=== PATIENT | male | born 1985 | race Caucasian/White ===

== ENCOUNTER 2017-05-21 07:47 | Observation (INO) | payer BC ==
[2017-05-19 17:04] VITALS: BMI 30.7
[2017-05-21] VITALS (23 sets, daily range): BP systolic 122–154; BP diastolic 63–84; PULSE 47–81; RESP 14–18; Ht 182.9 cm; Wt 100.7 kg
[~2017-05-21] VITALS: Ht 182.9 cm; Wt 100.7 kg
[~2017-05-21 07:47] MED LIST: ALBU18HF INH; ALPR0.5T6 PO; BENZ-5 PO; GLYCOPYRROLATE 1 MG INJ ONE; IBUP-1542 PO; NEOSTIGMINE 3 MG/3 ML SYRINGE ONE; [UNRECOGNIZED DRUG - CODE] PO
--- NOTE | 2017-05-21 08:14 | HPN ---
Date/Time of Note Date/Time of Note DATE: 05/21/17 TIME: 08:13 Interval H&P Admission Note Pt. seen H&P reviewed: No system changes HARRIETT RED MD May 21, 2017 08:13
[2017-05-21] MEDS ORDERED: MIDAZOLAM 1 MG/ML 2 ML INJ ONE (08:16)
[2017-05-21] MEDS ORDERED: ROPIVACAINE 0.5 % 30 ML VIAL ONE (08:16)
[2017-05-21] MEDS ORDERED: oxyCODONE (CR) 20 MG TAB [oxyCONTIN] PO ONE (08:30)
[2017-05-21] MEDS ORDERED: PREGABALIN 75 MG CAP PO ONE (08:30)
[2017-05-21] MEDS ORDERED: ONDANSETRON (ODT) 4 MG TAB ODT PRN (08:30)
[2017-05-21] MEDS ORDERED: HYDROmorphONE 1 MG/ML SYG IV PRN (09:00)
[2017-05-21] MEDS ORDERED: POLYMYXIN/BACITRACIN 1L IRRIG ONE ×2 (10:03→11:23)
[2017-05-21] MEDS ORDERED: NEOMYC/POLYMYX/BACIT 30 GM OINT ONE (13:13)
[2017-05-21] MEDS ORDERED: morphine 10 MG INJ ONE (13:14)
[2017-05-21] MEDS ORDERED: ONDANSETRON 4 MG INJ ONE (13:15)
[2017-05-21] MEDS ORDERED: KETOROLAC 30 MG INJ ONE (13:52)
[2017-05-21] MEDS ORDERED: LIDOCAINE 2% (SDV) 5 ML INJ ONE (13:54)
[2017-05-21] MEDS ORDERED: ROCURONIUM 50 MG INJ ONE ×2 (13:54)
[2017-05-21] MEDS ORDERED: PROPOFOL 20 ML ONE (13:54)
[2017-05-21] MEDS ORDERED: CEFAZOLIN 1 GM INJ ONE (14:02)
[2017-05-21] MEDS ORDERED: FENTAnyl 50 MCG/ML VIAL IV PRN (14:30)
[2017-05-21] MEDS ORDERED: MEPERIDINE 25 MG INJ IV PRN (14:30)
[2017-05-21] MEDS ORDERED: NALOXONE (0.4 MG/ML) INJ IV PRN (14:30)
[2017-05-21] MEDS ORDERED: ONDANSETRON 4 MG INJ IV PRN (14:30)
[2017-05-21] MEDS ORDERED: HYDROmorphONE (0.2 MG/ML) 10ML SYG IV PRN ×2 (14:30)
[2017-05-21] MEDS ORDERED: DIPHENHYDRAMINE 50 MG INJ IV PRN (14:30)
--- NOTE | 2017-05-21 14:38 | SIPON ---
Date/Time of Note Date/Time of Note DATE: 05/21/17 TIME: 14:37 Operative Report Preoperative Diagnosis Left ankle trimalleolar ankle fracture Left ankle syndesmotic disruption Postoperative Diagnosis Left ankle trimalleolar ankle fracture Left ankle syndesmotic disruption Operation/Procedure Performed Left ankle arthroscopy with extensive debridement left ankle ORIF trimalleolar ankle fracture left ankle syndesmosis ORIF Surgeon: HARRIETT RED MD Anesthesia Type: general, other (popliteal and adductor block) Estimated Blood Loss: 50 - 100 ml's Transfusion Required: no Specimen: none Grafts/Implants 3 x 4.0 partially threaded screws arthrex 1/3 tubular plate with screws Complications: no HARRIETT RED MD May 21, 2017 14:38
--- NOTE | 2017-05-21 14:39 | OPR ---
Date/Time of Note Date/Time of Note DATE: 05/21/17 TIME: 14:38 Operative Report Procedure Date: May 21, 2017 Preoperative Diagnosis Left ankle trimalleolar ankle fracture Left ankle syndesmotic disruption Postoperative Diagnosis Left ankle trimalleolar ankle fracture Left ankle syndesmotic disruption Operation Performed Left ankle arthroscopy with extensive debridement left ankle ORIF trimalleolar ankle fracture left ankle syndesmosis ORIF Surgeon: HARRIETT RED MD Anesthesia Type: general, other (popliteal and adductor block) Anesthesiologist: JULIAN CARPENTER MD Tourniquet Time: 100 min a 250 mm Hg Estimated Blood Loss: 50 - 100 ml's Transfusion Required: no Specimen: none Grafts/Implants 3 x 4.0 partially threaded screws arthrex 1/3 tubular plate with screws Complications: no Pt Condition Post Procedure: stable Disposition: PACU Indications Patient is a 31-year-old gentleman who sustained a left ankle trimalleolar ankle fracture with a syndesmotic disruption while rock climbing. Given the significant amount of swelling initially patient was noted and once the swelling reduced patient was indicated for surgical fixation given the amount of displacement. Operative\Procedure Findings Risk Note: Patient was explained the risks and benefits of surgery and the patient's diomede language including not limited to infection, bleeding, injury to blood vessels, nerves, ligaments or tendons. Risks of anesthesia, deep vein thrombosis and need for reduce future surgery. Patient acknowledged these risk by signing the surgical consent form. Procedure Description The patient was met in the preoperative holding area, marked with the correct operative extremity confirmed with both patient and consent. The patient was then brought back in the operative theater, placed supine on operative table, given preoperative antibiotics and preoperative regional block anesthesia. The patient was then placed in the arthroscopic thigh don with all bony prominences well padded with a nonsterile tourniquet placed on the operative extremity. The patient was then prepped and draped in the normal sterile fashion. All parties in the room did a timeout and everyone agreed it was the correct patient, and extremity and procedure. Initial distraction was placed across the joint and the superficial peroneal nerve had been marked out prior to distraction, and using extreme caution to avoid any injury to the neurovascular structures, the anteromedial, anterolateral, and posterolateral portals were created in the standard fashion. The arthroscope was brought into the ankle and a 21-point exam was performed showing extensive hemorrhagic scar tissue and synovitis in the ankle with extensive scar tissue in both the medial, lateral, posterior and anterior gutters. The syndesmosis was extensively debrided. After thorough debridement of the anterior medial, lateral, posterior and anterior gutters. There was extensive posterior malleolar fracture with articular disruption seen and the fracture at this point was reduced with a probe and a displaced articular fracture fragments was reduced and the comminution removed under arthroscopic visualization. Under arthroscopic visualization the fracture was held in reduction and a K wire was placed across the fracture site. After this was done , the ankle was irrigated thoroughly with normal saline and the arthroscopes were removed. At this point, the thigh don was removed and the patient was well padded under both extremities and patient was then reprepped and draped, and all gloves and instruments were changed. Attention was then turned initially to the distal fibular fracture. An incision was made over the the fibula. The incision was taken down to the fibula with care taken to avoid injury to the neurovascular structures. The fracture was identified and reduced and fixated with a distal fibular plate and fibula was reduced and under fluoroscopic guidance shown that there was fibular length and alignment and rotation had been re-achieved. Once this was shown, the wound was irrigated thoroughly. A manual external rotation stress xray was performed showing syndesmosis widening. A syndesmotic tightrope was then placed across the joint to reduce the syndesmosis. Attention was then turned to the medial malleolus and an incision was made over the medial malleolus and the medial malleolar fracture was identified and the hematoma was irrigated and removed and curetted out. The fracture was then reduced and held in reduction with 2 K wires followed by placement of 2 partially threaded 4.0 millimeter screws placed across the fracture site. The medial malleolus and we will reduced in both AP, lateral and oblique position Attention was then turned to the posterior malleolus An using the K wire that was placed arthroscopically through arthritic visualization and anterior to posterior screw was placed across the tibia from anterior posterior after incision was made over the anterior aspect of the distal tibia with care to avoid any injury to the neurovascular structures screw was then placed that was a 4.0 mm partially-threaded screw that obtained excellent purchase and reduction of the fracture. All wounds were thoroughly irrigated and closed with initially 2-0 Vicryl, followed by 3-0 Monocryl followed by 3-0 nylon in a vertical mattress fashion. All wounds were dressed with Xeroform, antibiotic ointment, 4 x 4s, 5 ABDs were placed and the patient was placed in a well-padded short leg splint. Tourniquet had been brought down prior to this and hemostasis had been achieved prior to the wound closure. The wounds were irrigated thoroughly prior to closure as well. All sponge and needle counts were correct. HARRIETT RED MD May 21, 2017 14:39
[2017-05-21] MEDS ORDERED: DIPHENHYDRAMINE 25 MG CAP PO PRN (15:00)
[2017-05-21] MEDS ORDERED: OXYCODONE/ACETAMINOPHEN (5/325) TAB PO PRN (15:00)
[2017-05-21] MEDS ORDERED: CEFAZOLIN 1 GM INJ IV SCH (15:00)
[2017-05-21] MEDS ORDERED: HYDROmorphONE 0.2 MG/ML PCA ONE (15:01)
[2017-05-21] MEDS: HYDROmorphONE 0.2 MG/ML PCA IV SCH ×2 (15:06→21:03)
--- NOTE | 2017-05-21 16:59 | RADRPT ---
PROCEDURE: Intraoperative imaging of the left ankle with fluoroscopy. CLINICAL INDICATION: Left ankle pain. Intraoperative. TECHNIQUE: 24 images of the left ankle were obtained in the operating room with an image intensifi er. No radiologist was in attendance. Fluoroscopy time is 206 seconds. COMPARISON: No prior study is available for comparison. FINDINGS: Surgical instruments are noted overlying the left ankle. Images demonstrate open reduction and internal fixation with a lateral plate and multiple screws tra nsfixing the distal fibula. There is also placement of a cannulated screw in the medial malleolus an d a fixation device between the distal tibia and fibula. IMPRESSION: 1. Intraoperative imaging of the left ankle. RPTAT: QQ .Edgardo Robison MD, MD Date Time Electronically viewed and signed by .Edgardo Robison MD, on 05/21/2017 16:59 .R/
[2017-05-21 17:51] LABS: BASOPHILS % 0.2 % (0.0-2.0); EOSINOPHILS % 0.2 % (0.0-7.0); HEMATOCRIT 39.1 % (42.0-52.0); HEMOGLOBIN 13.4 g/dl (14.0-18.0); LYMPHOCYTES # 1.3 10^3/ul (0.8-2.9); LYMPHOCYTES % 7.7 % (15.0-51.0); MEAN CORPUSCULAR HEMOGLOBIN 30.5 pg (29.0-33.0); MEAN CORPUSCULAR HGB CONC 34.3 g/dl (32.0-37.0); MEAN CORPUSCULAR VOLUME 89.1 fl (82.0-101.0); MEAN PLATELET VOLUME 10.4 fl (7.4-10.4); MONOCYTES % 5.7 % (0.0-11.0); NEUTROPHIL # 14.8 10^3/ul (1.6-7.5); NEUTROPHILS % 85.8 % (39.0-77.0); PLATELET COUNT 217 10^3/UL (140-415); RED BLOOD COUNT 4.39 10^6/ul (4.70-6.10); RED CELL DISTRIBUTION WIDTH 11.6 % (11.5-14.5); WHITE BLOOD COUNT 17.2 10^3/ul (4.8-10.8)
[2017-05-21] MEDS: ONDANSETRON 4 MG INJ IV PRN ×2 (18:26→23:07)
[2017-05-21] MEDS: PREGABALIN 75 MG CAP PO SCH (21:00)
[2017-05-21] MEDS: CEFAZOLIN 2 GM/50 ML (PMX) 50 ML IVPB SCH (21:57)
[2017-05-22] MEDS: ONDANSETRON 4 MG INJ IV PRN ×3 (03:03→13:44)
[2017-05-22] MEDS: HYDROmorphONE 0.2 MG/ML PCA IV SCH (03:35)
[2017-05-22] MEDS: CEFAZOLIN 2 GM/50 ML (PMX) 50 ML IVPB SCH ×2 (05:23→13:44)
[2017-05-22 07:36] VITALS: BP 116/75; RESP 19
[2017-05-22] MEDS ORDERED: HYDROmorphONE 1 MG/ML SYG IV PRN (08:00)
[2017-05-22] MEDS: PREGABALIN 75 MG CAP PO SCH (08:26)
[2017-05-22] MEDS: OXYCODONE/ACETAMINOPHEN (10/325) TAB PO PRN ×3 (08:26→17:44)
[2017-05-22] MEDS ORDERED: oxyCODONE (CR) 20 MG TAB [oxyCONTIN] PO SCH (12:00)
[2017-05-22] MEDS: HYDROmorphONE 1 MG/ML SYG IV PRN ×2 (12:08→18:34)
[2017-05-22 14:00] VITALS: BP 121/61; RESP 18
--- NOTE | 2017-05-22 18:21 | PN ---
Date/Time of Note Date/Time of Note DATE: 05/22/17 TIME: 18:21 Assessment/Plan Lines/Catheters IV Catheter Type (from Nrsg): Peripheral IV Rehman in Place (from Nrsg): No Assessment/Plan Assessment/Plan POD# 1 s/p ORIF left distal tibial pilon and fibula fracture with arthroscopic assistance and ankle arthroscopy with extensive debridement - NWB to the LLE - PT to GT - PO pain meds - DC home today Kehinde Red MD Subjective 24 Hr Interval Summary Doing well. Pain is well controlled. no f/c/n/v Constitutional: no complaints Feeding: advancing diet Pain Control: mild Exam/Review of Systems Vital Signs Vitals Vital Signs Date Time Temp Pulse Resp B/P Pulse Ox O2 Delivery O2 Flow Rate FiO2 05/22/17 14:00 98.1 61 18 121/61 98 Exam Constitutional: alert, oriented, well developed Extremities: other (LLE/ Splint intact, dressing c/d/i with vac working, toes wiggle, silt to the m/l/d/p/fdws, cr brisk) HARRIETT RED MD May 22, 2017 18:21 HARRIETT RED MD May 22, 2017 18:21
--- NOTE | 2017-05-22 18:23 | DS ---
Date/Time of Note Date/Time of Note DATE: 05/22/17 TIME: 18:22 Discharge Summary Admission/Discharge Info Admit Date/Time May 21, 2017 at 16:16 Discharge Date/Time 05/21/17 Discharge Diagnosis Left Trimalleolar ankle fracture Patient Condition: Good Hx of Present Illness ORIF left distal tibial pilon and fibula fracture with arthroscopic assistance and ankle arthroscopy with extensive debridement Hospital Course Pain controlled with po pain medicine postop . NVID on discharge Home Meds Reported Medications Ibuprofen* (Ibuprofen*) 600 Mg Tablet, 600 MG PO Q8 Y for PAIN, TAB 05/19/17 Oxycodone HCl/Acetaminophen (Primlev 5-300 mg Tablet) 1 Each Tablet, 1 EACH PO Q4 Y for PAIN, TAB 05/19/17 Benzonatate* (Benzonatate*) 100 Mg Capsule, 100 MG PO TID Y for COUGH, #60 05/19/17 Alprazolam* (Alprazolam*) 0.5 Mg Tablet, 0.5 MG PO ONCE Y for ANXIETY, #20 05/19/17 Albuterol Sulfate* (Ventolin HFA*) 18 Gm Hfa.aer.ad, 1-2 INH INH Q4 Y for WHEEZING, #18 05/19/17 Follow-up Plan Thursday with Dr. Brown Red Primary Care Provider Care Physician No Primary Time spent on discharge: < 30 minutes BROWN RED MD May 22, 2017 18:23
[2017-05-22] MEDS ORDERED: ONDA4TAB14 ODT (18:27)
[2017-05-22] MEDS ORDERED: OXYC-431 PO (18:27)
[2017-05-22] MEDS ORDERED: OXYC20TA41 PO (18:27)
--- NOTE | 2017-05-22 18:27 | PDOCDIS ---
Discharge Instructions DIAGNOSIS Discharge Diagnosis Left Trimalleolar ankle fracture CONDITION Patient Condition: Good HOME CARE INSTRUCTIONS: Diet Instructions: RegularSpecial Diet: Clear liquid diet ACTIVITY: Activity Restrictions: Slowly Increase Activity Rest between Activity Avoid heavy lifting Do not Drive Do not operate Machinery Do not operate Power Tool Avoid Heavy Housework Keep Limb Elevated No Weight Bearing Bathing Restrictions: Sponge Bath FOLLOW UP/APPOINTMENTS Follow-up Plan Thursday with HARRIETT Champion MD May 22, 2017 18:27
== END 2017-05-22 19:00 | disposition home or self-care (01) ==
LOC: SDS 07:47 → INTOOBSV 16:16 → MS1 16:16
PROVIDERS: ADMIT Orthopaedic Surgery; ATTEND Orthopaedic Surgery
DX: S82.852A Displaced trimalleolar fracture of left lower leg, initial encounter for closed fracture (principal); S93.432A Sprain of tibiofibular ligament of left ankle, initial encounter; Z68.30 Body mass index [BMI] 30.0-30.9, adult; E66.01 Morbid (severe) obesity due to excess calories; X58.XXXA Exposure to other specified factors, initial encounter; Y93.31 Activity, mountain climbing, rock climbing and wall climbing; Y99.9 Unspecified external cause status; Y92.9 Unspecified place or not applicable
CPT/HCPCS: 27822; 27829; 73610; 82306; 85025; 96365; 96366; 96375; 96376; 97161; C1713; G0378; J0690; J1170; J1885; J2175; J2250; J2270; J2405; J2710; J2795; J3010